=== PATIENT | male | born 1985 | race Caucasian/White ===

== ENCOUNTER 2016-09-06 22:29 | Observation (INO) | payer OTHER ==
[2016-09-06] MEDS ORDERED: DIPHTHERIA/TETANUS ADULT IM ONE (22:32)
[2016-09-06 22:42] LABS: MANUAL DIFF NEEDED? NO
[2016-09-06 22:55] LABS: BASO% 0.2 % (0.0-0.8); EOS# 0.09 X1000 (0.0-0.7); EOS% 1.9 % (0.0-10.0); HEMATOCRIT 43.1 % (42.0-52.0); HEMOGLOBIN 15.3 g/dL (14.0-18.0); IMM GRAN# 0.01 X1000 (0.0-0.04); IMM GRAN% 0.2 % (0.0-0.5); LYMPH# 1.99 X1000 (1.2-3.4); LYMPH% 42.5 % (20.5-51.1); MCH 30.2 PG (27-31); MCHC 35.5 g/dL (33-37); MONO# 0.42 X1000 (0.11-0.59); MPV 11.5 FL (7.4-10.4); NEUT% 46.2 % (42.2-75.2); PLT 167 X1000 (130-400); RBC 5.07 XMIL (4.7-6.1)
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
[2016-09-06 23:14] LABS: ACETAMINOPHEN < 1.2 ug/mL (10-30); AGAP 8; ALBUMIN 4.4 g/dL (3.5-5.0); ALKALINE PHOSPHATASE 72 U/L (32-122); BUN 9 mg/dL (8-22); CALCIUM 9.4 mg/dL (8.8-10.2); CHLORIDE 101 mmol/L (98-107); COSMO 275; GOT 16 U/L (10-34); GPT 8 U/L (10-44); POTASSIUM 3.3 mmol/L (3.5-5.1); SODIUM 138 mmol/L (136-145); TCO2 28 mmol/L (25-35); TOTAL PROTEIN 7.3 g/dL (6.3-8.3)
[2016-09-06] MEDS ORDERED: KLOR-CON PO ONE (23:20)
[2016-09-07 00:12] LABS: UR AMPHETAMINES QUAL NONE DETECTED (NONE DETECT); UR BARBITUATES QUAL NONE DETECTED (NONE DETECT); UR BENZODIAZEPIN QUAL PRESUMPTIVE POSITIVE (NONE DETECT); UR CANNABINOIDS QUAL PRESUMPTIVE POSITIVE (NONE DETECT); UR COCAINE QUAL NONE DETECTED (NONE DETECT); UR MDMA QUAL NONE DETECTED (NONE DETECT); UR METHADONE QUAL NONE DETECTED (NONE DETECT); UR METHAMPHETAMINE QUAL NONE DETECTED (NONE DETECT); UR OPIATES QUAL NONE DETECTED (NONE DETECT); UR OXYCODONE QUAL NONE DETECTED (NONE DETECT); UR PCP QUAL NONE DETECTED (NONE DETECT); UR TCA QUAL NONE DETECTED (NONE DETECT)
[2016-09-07] MEDS ORDERED: NS 1,000 ML ONE (00:36)
--- NOTE | 2016-09-07 01:22 | EKG Report ---
Test Performed on : 09/07/2016 01:14:32 AM Test Reason : overdose Blood Pressure : / mmHG Vent. Rate : 057 BPM Atrial Rate : 057 BPM P-R Int : 172 ms QRS Dur : 104 ms QT Int : 414 ms P-R-T Axes : 042 059 034 degrees QTc Int : 402 ms Sinus bradycardia. RSR' or QR pattern in V1 suggests right ventricular conduction delay Borderline ECG No previous ECGs available Unconfirmed Result
[2016-09-07] MEDS: NS 1,000 ML IV SCH ×3 (04:08→13:11)
[2016-09-07] MEDS ORDERED: NS 1,000 ML IV ONE (09:57)
[2016-09-07 10:59] LABS: CHLORIDE 106 mmol/L (98-107); POTASSIUM 3.6 mmol/L (3.5-5.1); SODIUM 140 mmol/L (136-145)
[2016-09-07 11:05] LABS: TCO2 27 mmol/L (25-35)
[2016-09-07 11:06] LABS: AGAP 7; BUN 9 mg/dL (8-22); CALCIUM 8.5 mg/dL (8.8-10.2); COSMO 276
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
[2016-09-07] MEDS ORDERED: NICODERM PATCH TD ONE (13:57)
[2016-09-07 17:26] VITALS: BP 107/68
== END 2016-09-07 16:44 | disposition left against medical advice (07) ==
LOC: P.ED 22:29 → P.ICU 09-07 01:01
PROVIDERS: ADMIT Family Medicine; ATTEND Family Medicine
DX: T42.4X2A Poisoning by benzodiazepines, intentional self-harm, initial encounter (principal); E87.6 Hypokalemia; F11.20 Opioid dependence, uncomplicated; F17.210 Nicotine dependence, cigarettes, uncomplicated; S51.811A Laceration without foreign body of right forearm, initial encounter; W45.8XXA Other foreign body or object entering through skin, initial encounter; Z71.6 Tobacco abuse counseling; Z91.5 Personal history of self-harm
CPT/HCPCS: 80048; 80053; 80305; 85025; 90471; 90714; 93005; 96360; G0480; J7030; P9612; 80320; 80324; 80329

== ENCOUNTER 2016-09-08 10:02 | Emergency (ER) ==
[2016-09-08 10:20] VITALS: BP 106/94
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
[2016-09-08 10:44] LABS: MANUAL DIFF NEEDED? NO
[2016-09-08 10:51] LABS: BASO% 0.2 % (0.0-0.8); EOS# 0.13 X1000 (0.0-0.7); EOS% 2.6 % (0.0-10.0); HEMATOCRIT 42.1 % (42.0-52.0); HEMOGLOBIN 14.6 g/dL (14.0-18.0); LYMPH# 2.17 X1000 (1.2-3.4); LYMPH% 43.5 % (20.5-51.1); MCH 30.5 PG (27-31); MCHC 34.7 g/dL (33-37); MCV 88.1 FL (81-99); MONO# 0.46 X1000 (0.11-0.59); MONO% 9.2 % (1.7-9.3); MPV 11.4 FL (7.4-10.4); NEUT% 44.5 % (42.2-75.2); PLT 154 X1000 (130-400); RBC 4.78 XMIL (4.7-6.1)
[2016-09-08 11:13] LABS: AGAP 4; ALKALINE PHOSPHATASE 68 U/L (32-122); BUN 12 mg/dL (8-22); CALCIUM 8.5 mg/dL (8.8-10.2); CHLORIDE 101 mmol/L (98-107); CK PROFILE 140 U/L (24-204); COSMO 275; GOT 17 U/L (10-34); GPT 7 U/L (10-44); POTASSIUM 4.1 mmol/L (3.5-5.1); SODIUM 138 mmol/L (136-145); TCO2 33 mmol/L (25-35); TOTAL BILIRUBIN 0.27 mg/dL (0.20-1.00); TOTAL PROTEIN 6.4 g/dL (6.3-8.3)
[2016-09-08 11:51] LABS: URINE CULTURE NEEDED? NO; URINE MICRO REVIEW NEEDED? NO; URINE SOURCE CLEAN CATCH
[2016-09-08 11:57] LABS: BILIRUBIN URINE NEGATIVE (NEGATIVE); BLOOD URINE NEGATIVE (NEGATIVE); COLOR YELLOW; GLUCOSE URINE NEGATIVE (NEGATIVE); LEUKOCYTES URINE NEGATIVE (NEGATIVE); NITRITE URINE NEGATIVE (NEGATIVE); PROTEIN URINE NEGATIVE (NEGATIVE); SP GRAVITY URINE 1.013; TURBIDITY URINE CLEAR (CLEAR); UROBILINOGEN URINE NORMAL (NORMAL)
[2016-09-08 11:59] LABS: UR EPITHELIAL CELLS <10 /HPF (<10); URINE BACTERIA NEGATIVE /HPF; URINE RBC <10 /HPF (<10); URINE WBC <10 /HPF (<10)
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
[2016-09-08 12:33] LABS: UR AMPHETAMINES QUAL NONE DETECTED (NONE DETECT); UR BARBITUATES QUAL NONE DETECTED (NONE DETECT); UR BENZODIAZEPIN QUAL PRESUMPTIVE POSITIVE (NONE DETECT); UR CANNABINOIDS QUAL PRESUMPTIVE POSITIVE (NONE DETECT); UR COCAINE QUAL NONE DETECTED (NONE DETECT); UR METHADONE QUAL NONE DETECTED (NONE DETECT); UR OPIATES QUAL NONE DETECTED (NONE DETECT); UR OXYCODONE QUAL NONE DETECTED (NONE DETECT); UR PCP QUAL NONE DETECTED (NONE DETECT)
== END 2016-09-08 12:00 | disposition left against medical advice (07) ==
LOC: EDBD → ED 10:02
DX: S80.211A Abrasion, right knee, initial encounter (principal); S70.311A Abrasion, right thigh, initial encounter; M54.9 Dorsalgia, unspecified; M54.2 Cervicalgia; M25.561 Pain in right knee; V09.1XXA Pedestrian injured in unspecified nontraffic accident, initial encounter; Z86.711 Personal history of pulmonary embolism; F41.9 Anxiety disorder, unspecified; F31.9 Bipolar disorder, unspecified; F17.210 Nicotine dependence, cigarettes, uncomplicated; Z71.6 Tobacco abuse counseling; Z79.899 Other long term (current) drug therapy; Z79.01 Long term (current) use of anticoagulants
CPT/HCPCS: 70450; 72125; 74176; 80053; 81001; 82550; 85025; 86850; 86900; 86901; G0480; 80320; 80324; 80345; 80346; 80349; 80353; 80358; 80361; 80365; 83992